=== PATIENT | male | born 1950 | race Caucasian/White ===

== ENCOUNTER 2018-02-19 14:27 | Emergency (ER) | payer SELFPAY ==
[~2018-02-19] VITALS: Ht 175.3 cm; Wt 81.3 kg
[~2018-02-19 14:27] MED LIST: ASPIR 8181 M1 PO; BENZTROPINE ME0.5 MG PO; BUPROPION HCL150 M2 PO; CLONAZEPAM1 MG PO; DIAZEPAM10 MG PO; ERGOCALCIF50000 UNIT PO; FERROUS SULFAT325 MG PO; FLEXERIL10 MG PO; FLUOXETINE HCL20 MG PO; IMODIUM MS REL1 EACH PO; LANTUS 10100 UNITS/ SC; LITHIUM CARBON300 M2 PO; METFORMIN HCL1000 MG PO; MORPHINE SULFAT30 M2 PO; MOTRIN600 MG PO; RISPERIDONE3 MG PO; ZOFRAN4 MG PO
[2018-02-19 15:32] LABS: HEMATOCRIT 52.7 % (38.0-50.0); HEMOGLOBIN 18.7 G/DL (12.5-16.6); MCH 33.1 PG (29.0-34.0); MCHC 35.5 G/DL (30.0-36.0); MCV 93.3 FL (86-99); PLATELET COUNT 283 K/uL (156-360); RBC DIS.WIDTH-CV 12.4 % (11.8-14.6); RED BLOOD COUNT 5.65 M/uL (4.00-5.50); WHITE BLOOD COUNT 10.7 K/uL (4.1-10.2)
[2018-02-19 15:34] LABS: CHLORIDE 102 mEq/L (99-109); POTASSIUM 4.3 mEq/L (3.7-5.4); SODIUM 135 mEq/L (136-147)
[2018-02-19 15:38] LABS: TOTAL BILIRUBIN 0.6 mg/dL (0.0-1.0)
[2018-02-19 15:40] LABS: CREATININE 1.1 mg/dL (0.6-1.3); GFR ESTIMATE (CALCULATED) > 59 mL/min/ (58.99-99999)
[2018-02-19 15:41] LABS: AST (GOT) 11 IU/L (2-34)
[2018-02-19 15:46] LABS: ALBUMIN 3.9 g/dL (3.2-4.8)
[2018-02-19 15:52] LABS: ALKALINE PHOSPHATASE 100 IU/L (3-129)
[2018-02-19 15:53] LABS: UREA NITROGEN (BUN) 15 mg/dL (9-23)
[2018-02-19 15:55] LABS: ALT (GPT) 17 IU/L (3-49)
[2018-02-19 15:58] LABS: GLUCOSE 475 mg/dL (70-99)
[2018-02-19 17:48] LABS: TROP-I INTERPRETATION NEGATIVE; TROPONIN-I < 0.01 ng/mL (0.0-0.30)
[2018-02-19 18:09] LABS: APPEARANCE CLEAR ((CLEAR)); BILIRUBIN NEGATIVE; BLOOD NEGATIVE; COLOR YELLOW ((YELLOW)); GLUCOSE (STRIP) >=500; KETONES NEGATIVE; LEUKOCYTES NEGATIVE; NITRITE NEGATIVE; PROTEIN (STRIP) NEGATIVE; SPECIFIC GRAVITY 1.037 (1.000-1.030); UCUL ADDED? NO; UROBILINOGEN 0.2 MG/DL (0.2-1.0)
[2018-02-19 20:01] VITALS: BP 125/75
== END 2018-02-19 20:02 | disposition home or self-care (01) ==
LOC: EME 14:27
PROVIDERS: Emergency Medicine
DX: N28.1 Cyst of kidney, acquired (principal); E11.65 Type 2 diabetes mellitus with hyperglycemia; R91.1 Solitary pulmonary nodule; I49.1 Atrial premature depolarization; R94.31 Abnormal electrocardiogram [ECG] [EKG]; K57.30 Diverticulosis of large intestine without perforation or abscess without bleeding; R91.8 Other nonspecific abnormal finding of lung field; J44.9 Chronic obstructive pulmonary disease, unspecified; I10 Essential (primary) hypertension; E78.5 Hyperlipidemia, unspecified; F31.9 Bipolar disorder, unspecified; F17.200 Nicotine dependence, unspecified, uncomplicated; Z79.4 Long term (current) use of insulin; Z79.82 Long term (current) use of aspirin; Z79.891 Long term (current) use of opiate analgesic; Z86.19 Personal history of other infectious and parasitic diseases; Z88.5 Allergy status to narcotic agent; Z88.1 Allergy status to other antibiotic agents
CPT/HCPCS: 71046; 74176; 80053; 81003; 82948; 84484; 85027; 93005; 99281; 99285; J2270; J7030